=== PATIENT | female | born 1940 | race Caucasian/White ===

== ENCOUNTER 2019-08-27 15:03 | Observation (INO) | payer MEDICARE, OTHER ==
[2019-08-27] MEDS ORDERED: Sodium Chloride 0.9% 10 ML Syringe FLUSH PRN (15:12)
[2019-08-27] MEDS ORDERED: Nitroglycerin 0.4 MG Tab.SL SL PRN (15:31)
[2019-08-27] MEDS ORDERED: Lidocaine 2% 100 MG/5 ML Syringe IVPUSH PRN (15:31)
[2019-08-27] MEDS ORDERED: EPINEPHrine 1:10,000 1 MG/10 ML Syringe IVPUSH PRN (15:31)
[2019-08-27] MEDS ORDERED: Atropine 0.1 MG/ML 10 ML Syringe IVPUSH PRN (15:31)
[2019-08-27] MEDS ORDERED: Albuterol 8 GM Inhaler INH PRN (19:23)
[2019-08-27] MEDS ORDERED: Non-Formulary Medication 1 Each (Exenatide Microspheres [Bydureon Pen] 2 MG) SUBCUT SCH (19:30)
[2019-08-27] MEDS: Nicotine 21 MG/24 Hr Patch TRDERM SCH (19:41)
[2019-08-27] MEDS: Acetaminophen 325 MG Tab PO PRN (20:38)
[2019-08-27] MEDS ORDERED: Cyclobenzaprine 5 MG Tab PO SCH (21:00)
[2019-08-27] MEDS ORDERED: Diclofenac Sodium 75 MG Tab.EC PO SCH (21:00)
[2019-08-27] MEDS ORDERED: Albuterol/Ipratropium 4 GM Inhalation Spray INH SCH (21:00)
[2019-08-27] MEDS: DICLOFENAC SODIUM 75 MG PO SCH (21:22)
[2019-08-28] MEDS: Albuterol/Ipratropium 4 GM Inhalation Spray INH SCH ×2 (00:02→09:35)
[2019-08-28] MEDS: Acetaminophen 325 MG Tab PO PRN ×2 (01:45→07:27)
[2019-08-28] MEDS ORDERED: amLODIPine 5 MG Tab PO SCH (09:00)
[2019-08-28] MEDS ORDERED: Lisinopril 20 MG Tab PO SCH (09:00)
[2019-08-28] MEDS: DICLOFENAC SODIUM 75 MG PO SCH (09:37)
[2019-08-28] MEDS: Nicotine 21 MG/24 Hr Patch TRDERM SCH (09:43)
--- NOTE | 2019-08-28 11:53 | PCM.DCSUM1 ---
Discharge Summary - Hospital Course Diagnosis: Stroke: No - Discharge Data Discharge Date: 08/28/19 Discharge Disposition: Home, Self-Care 01 Condition: Good - Referral to Home Health Primary Care Physician: Clare Aguilera PA-C - Patient Instructions Diet: Usual Diet as Tolerated Activity: As Tolerated Driving: May Drive Today Showering/Bathing: May Shower Notify Provider of: Fever, Nausea and/or Vomiting - Discharge Plan *PRESCRIPTION DRUG MONITORING PROGRAM REVIEWED*: Not Applicable *COPY OF PRESCRIPTION DRUG MONITORING REPORT IN PATIENT KIKA: Not Applicable Home Medications: Home Meds Albuterol [Take Home: Albuterol 18 GM, 1 INH Pack] 1 - 2 puff INH Q4HR PRN 08/27 [History] Albuterol/Ipratropium [Combivent Respimat] 1 puff INH QID 08/27/19 [History] Cyclobenzaprine [Flexeril] 5 mg PO BEDTIME 08/27/19 [History] Diclofenac Sodium [Voltaren] 75 mg PO BID PRN 08/27/19 [History] Exenatide Microspheres [Bydureon Pen] 2 mg SUBCUT WEEKLY 08/27/19 [History] Niacin [Niacin ER] 1,000 mg PO BEDTIME 08/27/19 [History] Nicotine [Nicotine Patch] 14 mg TD DAILY 08/27/19 [History] Pioglitazone HCl 15 mg PO DAILY 08/27/19 [History] lisinopriL [Lisinopril] 40 mg PO DAILY 08/27/19 [History] amLODIPine [Norvasc] 10 mg PO DAILY #1 08/28/19 [Rx] Referrals: Clare Aguilera PA-C [Primary Care Provider] - (anytime next week. ) - Discharge Summary/Plan Comment DC Time >30 min.: Yes Discharge Summary/Plan Comment: pertinent Final Dx: Htn; not optimized, increased CCB upon discharge Suspect coronary ischemia, (EKG with v-5 t-wave inversion) COPD, heavy smoker, no desire to quit GIOVANNI, significantly cog condition, poor sleep habits, no CPAP use, Obesity; confounding, suspect OHS history summary Mrs. Ivey is a 78 year old female who was admitted by Clare Aguilera PA-C from [facility] due tachycardia/EKG changes. She had came in for routine preoperative physical examination for right hip surgery. She stated to me this mo come in for any other reasons if not for this appointmt. She was found ~110 EKG changes and her blood pressure was 160/86 low-grade temperature 100.4. Her O2 saturations were 95% on room air and she had no chest pain or palpita Patient with significant smoker/COPD. pertinent clinical findings --EKG, (EKG with v-5 t-wave inversion) --Initial troponin negative --BNP 107 --BUN/creatinine normal --chest x-ray, no acute hospital course patient quite irritable on rounds, desires strongly to be discharged, agitated, With no sleep, hx of GIOVANNI, high risk for clinical deteriation coupled with and current [facility] not allowing HOME CBD oil which patient dependent on. she denied any chest pain, troponins were normal, viewed overnight telemetry did have some sinu however asymptomatic. She refused nicotine replacement therapy. medication changes/adjustments upon disharge Increase amlodipi to 10 mg daily Disposition --patient desires to discharge, Clare Aguilera --She is to report any chest paning shortness or lightheadedness considerations at follow-up High risk for upcoming surgery (RCRI)--suggest cardiology clearance. Suspect CAD - General Info Functional Status: Reports: Pain Controlled, Tolerating Diet, Ambulating, Urinating, Other (patient quite irritable on rounds, desires strongly to be discharged, agitated, ). Denies: New Symptoms - Review of Systems General: Reports: Fatigue HEENT: Reports: No Symptoms Pulmonary: Reports: Shortness of Breath (on ambulation). Denies: Cough, Sputum Cardiovascular: Reports: Dyspnea on Exertion, Lightheadedness. Denies: Chest Pain, Orthopnea, PND, Edema Gastrointestinal: Reports: Constipation. Denies: Abdominal Pain Genitourinary: Reports: No Symptoms Musculoskeletal: Reports: Joint Pain (right hip pain. ) Neurological: Reports: Difficulty Walking, Gait Disturbance. Denies: Confusion , Dizziness, Headache, Paresthesia - Patient Data Vitals - Most Recent: Last Vital Signs Temp 96.8 F 08/28/19 11:00 Pulse 77 08/28/19 11:00 Resp 20 08/28/19 11:00 BP 172/85 H 08/28/19 11:00 Pulse Ox 93 L 08/28/19 11:00 Weight - Most Recent: 143 lb I&O - Last 24 hours: Intake & Output 08/27/19 08/28/19 08/28/19 22:59 06:59 14:59 Intake Total 200 100 Output Total 400 100 Balance -200 0 Lab Results - Last 24 hrs: Laboratory Results - last 24 hr 08/27/19 08/27/19 08/27/19 Range/Units 17:42 19:30 19:38 POC Glucose 179 H (74-106) mg/dl Troponin I 0.04 (0.00-0.070) ng/mL Specimen Type Urinblad Urine Color Light yellow (YELLOW) Urine Appearance Clear (CLEAR) Urine pH 7.0 (5.0-9.0) Ur Specific [place] 1.015 (1.005-1.030) Urine Protein Trace H (NEGATIVE) mg/dL Urine Glucose (UA) 250 H (NEGATIVE) mg/dL Urine Ketones Negative (NEGATIVE) mg/dL Urine Occult Blood Negative (NEGATIVE) Urine Nitrite Negative (NEGATIVE) Urine Bilirubin Negative (NEGATIVE) Urine Urobilinogen 0.2 (0.2-1.0) E.U./dL Ur Leukocyte Esterase Negative (NEGATIVE) Urine RBC Not seen (0-5) /HPF Urine WBC 0-5 (0-5) /HPF Ur Epithelial Cells Few /LPF Urine Bacteria Rare (NONE TO FEW) /HPF 08/28/19 08/28/19 Range/Units 07:11 07:22 POC Glucose 175 H (74-106) mg/dl Troponin I 0.04 (0.00-0.070) ng/mL Specimen Type Urine Color (YELLOW) Urine Appearance (CLEAR) Urine pH (5.0-9.0) Ur Specific [place] (1.005-1.030) Urine Protein (NEGATIVE) mg/dL Urine Glucose (UA) (NEGATIVE) mg/dL Urine Ketones (NEGATIVE) mg/dL Urine Occult Blood (NEGATIVE) Urine Nitrite (NEGATIVE) Urine Bilirubin (NEGATIVE) Urine Urobilinogen (0.2-1.0) E.U./dL Ur Leukocyte Esterase (NEGATIVE) Urine RBC (0-5) /HPF Urine WBC (0-5) /HPF Ur Epithelial Cells /LPF Urine Bacteria (NONE TO FEW) /HPF Med Orders - Current: Current Medications Acetaminophen (Tylenol) 650 mg PO Q6H PRN PRN Reason: Pain (Mild 1-3)/fever Last Admin: 08/28/19 07:27 Dose: 650 mg Albuterol (Ventolin Hfa) 0 gm INH Q4HR PRN PRN Reason: Wheezing Albuterol/Ipratropium (Combivent Respimat) 0 gm INH 1000,1400,1800,2200 [facility] Last Admin: 08/28/19 09:35 Dose: 1 puff Amlodipine Besylate (Norvasc) 5 mg PO DAILY [facility] Last Admin: 08/28/19 09:35 Dose: 5 mg Atropine Sulfate (Atropine 0.1 Mg/Ml) 0 mg IVPUSH ASDIRECTED PRN PRN Reason: Heart. Cyclobenzaprine HCl (Flexeril) 5 mg PO BEDTIME [facility] Last Admin: 08/27/19 22:31 Dose: 5 mg Diclofenac Sodium (Voltaren) 75 mg PO BID [facility] Last Admin: 08/28/19 09:37 Dose: 75 mg Epinephrine HCl (Epinephrine 1:10,000) 1 mg IVPUSH ASDIRECTED PRN PRN Reason: Heart. Lidocaine HCl (Xylocaine 2%) 0 mg IVPUSH ASDIRECTED PRN PRN Reason: Heart. Lisinopril (Prinivil) 40 mg PO DAILY [facility] Last Admin: 08/28/19 09:36 Dose: 40 mg Nicotine (Habitrol) 21 mg TRDERM DAILY [facility] Last Admin: 08/28/19 09:43 Dose: Not Given Nitroglycerin (Nitrostat) 0.4 mg SL ASDIRECTED PRN PRN Reason: Heart. Non-Formulary Medication (Exenatide Microspheres [Bydureon Pen]) 2 mg SUBCUT WEEKLY [facility] Pioglitazone HCl (Actos) 15 mg PO DAILY [facility] Last Admin: 08/28/19 09:35 Dose: 15 mg Sodium Chloride (Saline Flush) 10 ml FLUSH Q8HR PRN PRN Reason: keep vein open Last Admin: 08/27/19 21:21 Dose: 10 ml Discontinued Medications Albuterol/Ipratropium (Combivent Respimat) 0 gm INH QID [facility] Last Admin: 08/27/19 22:54 Dose: Not Given Diclofenac Sodium (Voltaren) 75 mg PO BID [facility] Last Admin: 08/27/19 22:53 Dose: Not Given - Exam Quality Assessment: Denies: Supplemental Oxygen General: Reports: Alert, Oriented, Cooperative (patient quite irritable on rounds, desires strongly to be discharged, agitated, ) Neck: Reports: Supple Lungs: Reports: Rhonchi Cardiovascular: Reports: Regular Rate, Regular Rhythm GI/Abdominal Exam: Soft (Female) Exam: Normal External Exam Back Exam: Denies: CVA Tenderness (L), CVA Tenderness (R) Extremities: Non-Tender Neurological: Reports: Cranial Nerves Intact. Denies: Normal Gait Psy/Mental Status: Reports: Alert, Anxious, Agitated
== END 2019-08-28 12:07 | disposition home or self-care (01) ==
LOC: KA.MS 17:02
PROVIDERS: ADMIT Physician Assistant Medical; ATTEND Family Medicine
DX: I10 Essential (primary) hypertension (principal); E11.42 Type 2 diabetes mellitus with diabetic polyneuropathy; J44.9 Chronic obstructive pulmonary disease, unspecified; F17.210 Nicotine dependence, cigarettes, uncomplicated; G47.33 Obstructive sleep apnea (adult) (pediatric); R35.0 Frequency of micturition; E66.9 Obesity, unspecified; Z88.0 Allergy status to penicillin; Z91.041 Radiographic dye allergy status; Z91.030 Bee allergy status; Z79.84 Long term (current) use of oral hypoglycemic drugs; Z79.1 Long term (current) use of non-steroidal anti-inflammatories (NSAID); Z79.899 Other long term (current) drug therapy; Z68.34 Body mass index [BMI] 34.0-34.9, adult
CPT/HCPCS: 36415; 71250; 81001; 82962; 84484; A9270-GY; G0378

== ENCOUNTER 2021-04-11 10:59 | Inpatient (IN) | payer MEDICARE, OTHER ==
[2021-04-11] MEDS ORDERED: traMADol 50 MG Tab PO ONE (15:20)
[2021-04-11] MEDS ORDERED: Albuterol/Ipratropium 3.0-0.5 MG/3 ML Neb Soln INH PRN (17:39)
[2021-04-11] MEDS: glipiZIDE 5 MG Tab.ER PO SCH (18:08)
[2021-04-11] MEDS: amLODIPine 5 MG Tab PO SCH (18:09)
[2021-04-11] MEDS: Acetaminophen/HYDROcodone 325-5 MG Tab PO PRN (18:17)
[2021-04-11] MEDS: traMADol 50 MG Tab PO PRN (22:04)
[2021-04-12] MEDS: ALBUTEROL INH PRN ×2 (06:13→14:05)
[2021-04-12] MEDS: IPRATROPIUM INH PRN ×2 (06:13→14:05)
[2021-04-12] MEDS: traMADol 50 MG Tab PO PRN ×3 (06:14→14:08)
[2021-04-12] MEDS: Acetaminophen/HYDROcodone 325-5 MG Tab PO PRN ×2 (09:01→20:17)
[2021-04-12] MEDS: Aspirin 325 MG Tab.EC PO SCH (09:02)
[2021-04-12] MEDS ORDERED: Magnesium Hydroxide 400 MG/5 ML Susp 30 ML Cup PO PRN (09:14)
[2021-04-12] MEDS ORDERED: Bisacodyl 10 MG Supp RECTAL PRN (09:14)
[2021-04-12] MEDS: Lisinopril 20 MG Tab PO SCH (09:30)
[2021-04-12 10:20] LABS: ANION GAP 14.4 mmol/L (5-15); CHLORIDE,CL 100 mmol/L (98-107); SODIUM,NA 139 mmol/L (136-145)
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
[2021-04-12] MEDS: EPINEPHRINE INH SCH ×2 (12:03→20:16)
[2021-04-12] MEDS ORDERED: Nicotine 21 MG/24 Hr Patch TRDERM PRN (16:31)
[2021-04-12 16:54] LABS: HEMOGLOBIN A1C 6.7 % (4.3-5.7)
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
[2021-04-12] MEDS: glipiZIDE 5 MG Tab.ER PO SCH (18:03)
[2021-04-12] MEDS: amLODIPine 5 MG Tab PO SCH (18:03)
[2021-04-13] MEDS: traMADol 50 MG Tab PO PRN ×4 (02:34→20:16)
[2021-04-13] MEDS: COMBIVENT RESPIMAT INH PRN ×2 (02:35→10:30)
[2021-04-13] MEDS: Aspirin 325 MG Tab.EC PO SCH (08:35)
[2021-04-13] MEDS: Acetaminophen/HYDROcodone 325-5 MG Tab PO PRN (08:35)
[2021-04-13] MEDS: Lisinopril 20 MG Tab PO SCH (08:36)
[2021-04-13] MEDS: EPINEPHRINE INH SCH ×2 (08:36→20:12)
[2021-04-13] MEDS ORDERED: traMADol 50 MG Tab PO PRN (08:42)
[2021-04-13] MEDS ORDERED: Acetaminophen/HYDROcodone 325-5 MG Tab PO ONE (10:22)
[2021-04-13] MEDS: Naloxegol Oxalate 25 MG Tab PO SCH (10:31)
[2021-04-13] MEDS: amLODIPine 5 MG Tab PO SCH (18:04)
[2021-04-13] MEDS: glipiZIDE 5 MG Tab.ER PO SCH (18:05)
[2021-04-14] MEDS: COMBIVENT RESPIMAT INH PRN ×3 (02:14→21:00)
[2021-04-14] MEDS: traMADol 50 MG Tab PO PRN ×2 (02:16→10:41)
[2021-04-14] MEDS: Acetaminophen/HYDROcodone 325-5 MG Tab PO PRN ×2 (07:33→20:59)
[2021-04-14] MEDS: Aspirin 325 MG Tab.EC PO SCH (08:37)
[2021-04-14] MEDS: Lisinopril 20 MG Tab PO SCH (08:37)
[2021-04-14] MEDS: Naloxegol Oxalate 25 MG Tab PO SCH (08:37)
[2021-04-14] MEDS: EPINEPHRINE INH SCH ×2 (08:41→20:00)
[2021-04-14] MEDS: glipiZIDE 5 MG Tab.ER PO SCH (16:39)
[2021-04-14] MEDS: amLODIPine 5 MG Tab PO SCH (16:39)
[2021-04-15] MEDS: traMADol 50 MG Tab PO PRN ×4 (01:28→21:06)
[2021-04-15] MEDS: Acetaminophen/HYDROcodone 325-5 MG Tab PO PRN ×4 (07:51→23:41)
[2021-04-15] MEDS: EPINEPHRINE INH SCH ×3 (08:00→20:21)
[2021-04-15] MEDS: Lisinopril 20 MG Tab PO SCH (10:35)
[2021-04-15] MEDS: Aspirin 325 MG Tab.EC PO SCH (10:35)
[2021-04-15] MEDS: Naloxegol Oxalate 25 MG Tab PO SCH (10:35)
[2021-04-15] MEDS ORDERED: EXENATIDE SUBCUT SCH (14:00)
[2021-04-15] MEDS: amLODIPine 5 MG Tab PO SCH (17:28)
[2021-04-15] MEDS: glipiZIDE 5 MG Tab.ER PO SCH (17:28)
[2021-04-15] MEDS: COMBIVENT RESPIMAT INH PRN (23:40)
[2021-04-16] MEDS: COMBIVENT RESPIMAT INH PRN ×3 (05:15→23:23)
[2021-04-16] MEDS: Acetaminophen/HYDROcodone 325-5 MG Tab PO PRN ×4 (07:30→21:31)
[2021-04-16] MEDS: Naloxegol Oxalate 25 MG Tab PO SCH (08:32)
[2021-04-16] MEDS: Aspirin 325 MG Tab.EC PO SCH (08:32)
[2021-04-16] MEDS: Lisinopril 20 MG Tab PO SCH (08:40)
[2021-04-16] MEDS: EPINEPHRINE INH SCH ×2 (08:41→20:00)
[2021-04-16] MEDS: amLODIPine 5 MG Tab PO SCH (17:24)
[2021-04-16] MEDS: glipiZIDE 5 MG Tab.ER PO SCH (17:24)
[2021-04-16] MEDS: traMADol 50 MG Tab PO PRN (23:23)
[2021-04-16] MEDS: Simethicone 80 MG Tab.Chew PO PRN (23:55)
[2021-04-17] MEDS: Aspirin 325 MG Tab.EC PO SCH (07:59)
[2021-04-17] MEDS: Lisinopril 20 MG Tab PO SCH (07:59)
[2021-04-17] MEDS: Naloxegol Oxalate 25 MG Tab PO SCH (07:59)
[2021-04-17] MEDS: Acetaminophen/HYDROcodone 325-5 MG Tab PO PRN ×3 (07:59→20:23)
[2021-04-17] MEDS: EPINEPHRINE INH SCH ×2 (08:06→20:23)
[2021-04-17] MEDS: COMBIVENT RESPIMAT INH PRN ×2 (08:06→22:43)
[2021-04-17] MEDS: traMADol 50 MG Tab PO PRN (10:42)
[2021-04-17] MEDS: Simethicone 80 MG Tab.Chew PO PRN (16:41)
[2021-04-17] MEDS: amLODIPine 5 MG Tab PO SCH (17:43)
[2021-04-17] MEDS: glipiZIDE 5 MG Tab.ER PO SCH (17:43)
[2021-04-18] MEDS: traMADol 50 MG Tab PO PRN ×2 (04:21→10:21)
[2021-04-18] MEDS: COMBIVENT RESPIMAT INH PRN (04:43)
[2021-04-18] MEDS: Naloxegol Oxalate 25 MG Tab PO SCH (08:43)
[2021-04-18] MEDS: Acetaminophen/HYDROcodone 325-5 MG Tab PO PRN (08:43)
[2021-04-18] MEDS: Aspirin 325 MG Tab.EC PO SCH (08:43)
[2021-04-18] MEDS: Lisinopril 20 MG Tab PO SCH (08:44)
[2021-04-18] MEDS: EPINEPHRINE INH SCH (08:50)
--- NOTE | 2021-04-18 08:56 | PCM.DCSUM1 ---
Discharge Summary - Hospital Course Free Text/Narrative:: Date of admission: 04/11/21 Date of discharge: 04/18/21 Admission diagnoses: # Physical deconditioning # S/p right VITALIY - PT and OT - Continue dressing changes daily with dry gauze and tape - ASA 325mg daily for 6 weeks per orthopedics - Philip 5/325 q4h prn and tramadol 50mg q6h prn - Follow-up appt with Dr. Escalona 04/24 at 1300 at [facility] # Constipation: Postoperative and in the setting of narcotic use. Active bowel sounds and no significant abdominal pain. She declines any medication assistance other than the stool softener at this time. - Docusate/Senna 1 tab BID - MgOH daily prn - Bisacodyl suppository prn # Anemia: Postoperative. Admission hgb 10.5. - Plan for outpatient recheck, unless need to recheck sooner arises Discharge diagnoses: # GIOVANNI: Declines CPAP. # COPD: Stable respiratory status. Continue Combivent and albuterol prn. # CAD: 11/21/20 catheterization with moderate disease of circumflex. Adamantly declines aspirin, beta robin, or statin. # Atrial fibrillation, persistent: 12/12/20 event monitor with 100% burden. Adamantly declines anticoagulation, aspirin, or beta robin. # HTN: Controlled. Continue lisinopril 40mg daily and amlodipine 10mg daily. # Heart failure with preserved ejection fraction / Pulmonary HTN: 09/03/19 echo with grade 3 diastolic dysfunction, [id number] dilated left atrium, and PASP 62mmHg. Fluid status stable. # DMT2: Admission A1c 6.7%. Intolerant of metformin. Continue exenatide 2mg weekly and glipizide 10mg daily. # HLD: 11/18/20 lipid panel with LDL 104. Adamantly declines statin. # OA: Was using diclofenac, acetaminophen, and topical CBD as outpatient. Recommend not restarting NSAID at discharge in the setting of CAD. # Tobacco dependence: Previously was smoking 2ppd. Precontemplative stage of change. Nicotine patch available prn, which she declines currently. HPI summary: 80yoF with a history notable for CAD, COPD, and DMT2, who underwent right VITALIY on 04/07/21 at [facility] for severe degenerative disease and avascular necrosis. After generally uncomplicated postoperative course, she was deemed ready for acute hospitalization discharge and agreed to swing bed placement at [facility] for physical rehabilitation. 04/18/21: Patient looking forward to discharging home, she is concerned about going up her stairs to get into her house. [facility] and in home physical therapy planned upon discharge. Patient denies pain "as long as I get my pain pill before I get up." Bowels moving regularly, no concern of post- operative constipation. Reports mild occasional nausea, no vomiting. Swelling to RLE, patient refusing YUDI, teds stating this makes it worse. Sitting in wheelchair much of the day. Encouraged her to elevate her leg as much as possible at home. Patient states she plans to stop taking her glipizide as she attributes the increased swelling to her medication. Patient to follow-up in the next week with Scarlett Huffman APRN, CNP at [facility]. Discharge and follow-up recommendations: - Discharge to home with [facility] with PT and home health aide - New medications at discharge: Aspirin 325mg PO daily x 6 weeks for post- operative anticoagulation; Philip 5/325 Q4H PRN pain, tramadol 50mg Q6H PRN pain; continue bowel regimen of senna + PO BID, MOM daily PRN, and bisacodyl suppository PRN. - Follow-up with PCP Scarlett Huffman APRN-YUE, in the next week. Recheck Hgb as outpatient, Hgb upon swing bed admission 10.5. This is the order & Face to Face encounter for home health services to include: 1. Nursing, PT, OT and home health aide 2. Patient has half-way need and has home bound status due to: - Develop an in-home therapy program to address decreased strength/endurance due to s/p hip surgery - Unsteady gait due to recent joint replacement surgery - Wound care and assessment of risk for infection due to s/p hip replacement * Patient is home bound as related to the above condition. 3. The patient will be followed by Scarlett Huffman APRN, CNP in the community setting and will sign home health orders. - Discharge Data Discharge Date: 04/18/21 Discharge Disposition: Home, W Home Health Agency 06 Condition: Good - Referral to Home Health Date of Face to Face Encounter: 04/18/21 ([facility]) Reason for Homebound Status: This is the order & Face to Face encounter for home health services to include: 1. Nursing, PT, OT and home health aide. 2. Patient has half-way need and has home bound status due to: - Develop an in-home therapy program to address decreased strength/endurance due to s/p hip surgery. - Unsteady gait due to recent joint replacement surgery. - Wound care and assessment of risk for infection due to s/p hip replacement. * Patient is home bound as related to the above condition. 3. The patient will be followed by Scarlett Huffman APRN, CNP in the community setting and will sign home health orders. Skilled Need: This is the order & Face to Face encounter for home health services to include: 1. Nursing, PT, OT and home health aide. 2. Patient has half-way need and has home bound status due to: - Develop an in-home therapy program to address decreased strength/endurance due to s/p hip surgery. - Unsteady gait due to recent joint replacement surgery. - Wound care and assessment of risk for infection due to s/p hip replacement. * Patient is home bound as related to the above condition. 3. The patient will be followed by Scarlett Huffman APRN, CNP in the community setting and will sign home health orders. - Patient Summary/Data Consults: Consultations 04/11/21 16:18 OT Evaluation and Treatment [CONS] Routine PT Evaluation and Treatment [CONS] Routine - Patient Instructions Diet: Usual Diet as Tolerated Driving: Do Not Drive Showering/Bathing: No Tub Bathing/Swimming Wound/Incision Care: Keep Operative Site/Wound Site Clean and Dry, Change Dressing Daily Notify Provider of: Fever, Increased Pain, Swelling and Redness, Drainage, Nausea and/or Vomiting - Discharge Plan *PRESCRIPTION DRUG MONITORING PROGRAM REVIEWED*: Yes *COPY OF PRESCRIPTION DRUG MONITORING REPORT IN PATIENT KIKA: Yes Prescriptions/Med Rec: Hydrocodone/Acetaminophen [HYDROcodone-Acetaminophen 5-325 MG] 1 - 2 tab PO Q4H PRN #60 tab PRN Reason: Pain traMADol [Ultram] 50 - 100 mg PO Q4HR PRN #60 tab PRN Reason: Pain Tobacco Cessation Medication: Prescription Refused Home Medications: Home Meds Albuterol/Ipratropium [Combivent Respimat] 1 puff INH QID PRN 02/06/20 [History] Exenatide Microspheres [Bydureon Pen] 2 mg SUBCUT WEEKLY 08/27/19 [History] lisinopriL [Lisinopril] 40 mg PO DAILY 08/27/19 [History] Aspirin [Aspirin EC] 325 mg PO DAILY 04/11/21 [History] Cannabidiol (Cbd) Extract [CBD Oil] 1 tab PO Q6H PRN 04/11/21 [History] Cider Vinegar [Apple Cider Vinegar] 300 mg PO BID 04/11/21 [History] EPINEPHrine [Primatene Mist] 2 puff PO BID PRN 04/11/21 [History] Niacinamide [Niacin] 500 mg PO BEDTIME 04/11/21 [History] Vitamin E 400 units PO DAILY 04/11/21 [History] amLODIPine [Norvasc] 10 mg PO DAILY@1700 04/11/21 [History] glipiZIDE [Glucotrol XL] 10 mg PO DAILY@1730 04/11/21 [History] guaiFENesin/Phenylephrine HCl [Chest Franco Rlf PE 400-10 mg Tb] 1 tab PO Q6H PRN 04/11/21 [History] Docusate Sodium/Sennosides [Senna Plus] 1 tab PO BID tablet 04/18/21 [Rx] Hydrocodone/Acetaminophen [HYDROcodone-Acetaminophen 5-325 MG] 1 - 2 tab PO Q4H PRN #60 tab 04/18/21 [Rx] Magnesium Hydroxide [Milk of Magnesia] 30 ml PO Q12H PRN cup 04/18/21 [Rx] Non-Formulary Medication [NF Drug] 2 each INH BID each 04/18/21 [Rx] Patient's Own Medication [Ptom] 0 each INH QID PRN each 04/18/21 [Rx] bisacodyL [Dulcolax] 10 mg RECTAL DAILY PRN supp 04/18/21 [Rx] traMADol [Ultram] 50 - 100 mg PO Q4HR PRN #60 tab 04/18/21 [Rx] Oxygen Therapy Mode: Room Air - Discharge Summary/Plan Comment DC Time >30 min.: Yes Total # of Minutes for Discharge Time: 45 - General Info Functional Status: Reports: Pain Controlled, Tolerating Diet, Ambulating (with assistance of walker, sitting in wheelchair much of the day), Urinating. Denies: New Symptoms - Review of Systems General: Reports: No Symptoms HEENT: Reports: No Symptoms Pulmonary: Reports: No Symptoms Cardiovascular: Reports: Edema (left lower leg and foot) Gastrointestinal: Reports: Nausea (intermittent). Denies: Vomiting Genitourinary: Reports: No Symptoms Musculoskeletal: Reports: Joint Pain (R hip after surgery) Skin: Reports: Other (left hip incision, healing) Neurological: Reports: No Symptoms Psychiatric: Reports: No Symptoms - Patient Data Vitals - Most Recent: Last Vital Signs Temp 97.8 F 04/17/21 09:00 Pulse 90 04/17/21 09:00 Resp 20 04/17/21 09:00 BP 128/57 L 04/18/21 08:44 Pulse Ox 97 04/17/21 09:00 Weight - Most Recent: 132 lb 8 oz I&O - Last 24 hours: Intake & Output 04/17/21 04/18/21 04/18/21 22:59 06:59 14:59 Intake Total 100 50 Balance 100 50 Med Orders - Current: Current Medications Hydrocodone Bitart/Acetaminophen (Acetaminophen/Hydrocodone 325-5 Mg Tab) 1 tab PO Q4H PRN PRN Reason: Pain Last Admin: 04/18/21 08:43 Dose: 1 tab Documented by: Amlodipine Besylate (Amlodipine 5 Mg Tab) 10 mg PO DAILY@1700 [facility] Last Admin: 04/17/21 17:43 Dose: 10 mg Documented by: Aspirin (Aspirin 325 Mg Tab.Ec) 325 mg PO DAILY [facility] Last Admin: 04/18/21 08:43 Dose: 325 mg Documented by: Bisacodyl (Bisacodyl 10 Mg Supp) 10 mg RECTAL DAILY PRN PRN Reason: Constipation Glipizide (Glipizide 5 Mg Tab.Er) 10 mg PO DAILY@1730 [facility] Last Admin: 04/17/21 17:43 Dose: 10 mg Documented by: Lisinopril (Lisinopril 20 Mg Tab) 40 mg PO DAILY [facility] Last Admin: 04/18/21 08:44 Dose: 40 mg Documented by: Magnesium Hydroxide (Magnesium Hydroxide 400 Mg/5 Ml Susp 30 Ml Cup) 30 ml PO Q12H PRN PRN Reason: Constipation Naloxegol (Naloxegol Oxalate 25 Mg Tab) 25 mg PO DAILY [facility] Last Admin: 04/18/21 08:43 Dose: 25 mg Documented by: Nicotine (Nicotine 21 Mg/24 Hr Patch) 21 mg TRDERM DAILY PRN PRN Reason: NICOTINE CRAVING Last Admin: 04/14/21 12:19 Dose: 21 mg Documented by: Exenatide Microspheres [ Bydureon Pen] 2 Mg/0 .65 Ml Ml - Ptom 2 mg SUBCUT Sa [facility] Last Admin: 04/15/21 14:15 Dose: 2 mg Documented by: Primatene Mist 0. 125mg/Inh ( Epinephrine)Own Med 2 each INH BID [facility] Last Admin: 04/18/21 08:50 Dose: 2 each Documented by: Combivent Respimat 0 each INH QID PRN PRN Reason: Shortness of Breath Last Admin: 04/18/21 04:43 Dose: 1 each Documented by: Senna/Docusate Sodium (Docusate Sodium/Sennosides 50-8.6 Mg Tab) 1 tab PO BID [facility] Last Admin: 04/18/21 08:43 Dose: 1 tab Documented by: Simethicone (Simethicone 80 Mg Tab.Chew) 80 mg PO Q6H PRN PRN Reason: Indigestion Last Admin: 04/17/21 16:41 Dose: 80 mg Documented by: Tramadol HCl (Tramadol 50 Mg Tab) 100 mg PO Q6HR PRN PRN Reason: Pain Last Admin: 04/18/21 04:21 Dose: 100 mg Documented by: Discontinued Medications Hydrocodone Bitart/Acetaminophen (Acetaminophen/Hydrocodone 325-5 Mg Tab) 1 - 2 tab PO Q4H PRN PRN Reason: Pain Last Admin: 04/13/21 08:35 Dose: 1 tab Documented by: Hydrocodone Bitart/Acetaminophen (Acetaminophen/Hydrocodone 325-5 Mg Tab) 1 tab PO ONETIME ONE Stop: 04/13/21 10:23 Last Admin: 04/13/21 10:30 Dose: 1 tab Documented by: Albuterol/Ipratropium (Albuterol/Ipratropium 3.0-0.5 Mg/3 Ml Neb Soln) 3 ml INH QID PRN PRN Reason: Shortness of Breath Combivent Respimat 20 Mcg-100mcg/Act Inhaler Own Med 0 each INH QID PRN PRN Reason: Shortness of Breath Last Admin: 04/12/21 14:05 Dose: 1 each Documented by: Senna/Docusate Sodium (Docusate Sodium/Sennosides 50-8.6 Mg Tab) 1 tab PO Q12H PRN PRN Reason: Constipation Last Admin: 04/12/21 13:10 Dose: 1 tab Documented by: Tramadol HCl (Tramadol 50 Mg Tab) 100 mg PO ONETIME ONE Stop: 04/11/21 15:21 Last Admin: 04/11/21 15:33 Dose: 100 mg Documented by: Tramadol HCl (Tramadol 50 Mg Tab) 50 - 100 mg PO Q4HR PRN PRN Reason: Pain Last Admin: 04/13/21 06:43 Dose: 50 mg Documented by: Tramadol HCl (Tramadol 50 Mg Tab) 100 mg PO Q6HR PRN PRN Reason: Pain - Exam Quality Assessment: Reports: DVT Prophylaxis (aspirin 325mg PO daily x 6 weeks per pharmacy). Denies: Supplemental Oxygen General: Reports: Alert, Oriented, Cooperative, No Acute Distress HEENT: Reports: Pupils Equal, Mucous Membr. Moist/[place] Neck: Reports: Supple, Trachea Midline Lungs: Reports: Clear to Auscultation, Decreased Breath Sounds. Denies: Crackles, Rhonchi, Wheezing Cardiovascular: Reports: Regular Rate, Regular Rhythm, No Murmurs GI/Abdominal Exam: Normal Bowel Sounds, Soft, Non-Tender, No Distention (Female) Exam: Deferred Rectal (Female) Exam: Deferred Back Exam: Reports: Full Range of Motion Extremities: Non-Tender, Normal Capillary Refill, Pedal Edema (2+ to R foot and lower leg) Skin: Reports: Warm, Dry, Intact Wound/Incisions: Reports: Healing Well, Dressing Dry and Intact, Drainage (scant serous) Neurological: Reports: No New Focal Deficit Psy/Mental Status: Reports: Alert, Normal Affect, Normal Mood
== END 2021-04-18 10:40 | disposition home health service (06) | DRG 948 ==
LOC: KA.MS 14:40
PROVIDERS: ADMIT Nurse Practitioner Family; ATTEND Family Medicine
DX: R53.81 Other malaise (principal); I48.19 Other persistent atrial fibrillation; I50.32 Chronic diastolic (congestive) heart failure; Z96.641 Presence of right artificial hip joint; K59.00 Constipation, unspecified; D64.9 Anemia, unspecified; G47.33 Obstructive sleep apnea (adult) (pediatric); J44.9 Chronic obstructive pulmonary disease, unspecified; I25.10 Atherosclerotic heart disease of native coronary artery without angina pectoris; I11.0 Hypertensive heart disease with heart failure; I27.20 Pulmonary hypertension, unspecified; E11.9 Type 2 diabetes mellitus without complications; E78.5 Hyperlipidemia, unspecified; M19.90 Unspecified osteoarthritis, unspecified site; D50.9 Iron deficiency anemia, unspecified; F17.210 Nicotine dependence, cigarettes, uncomplicated; Z79.82 Long term (current) use of aspirin; Z79.899 Other long term (current) drug therapy; Z79.84 Long term (current) use of oral hypoglycemic drugs; Z88.8 Allergy status to other drugs, medicaments and biological substances; Z91.030 Bee allergy status; Z88.0 Allergy status to penicillin; Z88.1 Allergy status to other antibiotic agents; Z90.710 Acquired absence of both cervix and uterus; Z90.49 Acquired absence of other specified parts of digestive tract
CPT/HCPCS: 36415; 80053; 82947; 83036; 85025; 97110-GO; 97110-GP; 97161-GP; 97535-GO; A9270-GY

== ENCOUNTER 2022-11-16 18:25 | Observation (INO) | payer MEDICARE, OTHER ==
[2022-11-16] MEDS ORDERED: EPINEPHrine 1:10,000 1 MG/10 ML Syringe IVPUSH PRN (18:50)
[2022-11-16] MEDS ORDERED: Lidocaine 2% 100 MG/5 ML Syringe IVPUSH PRN (18:50)
[2022-11-16] MEDS ORDERED: Nitroglycerin 0.4 MG Tab.SL SL PRN (18:50)
[2022-11-16] MEDS ORDERED: Atropine 0.1 MG/ML 10 ML Syringe IVPUSH PRN (18:50)
[2022-11-16] MEDS ORDERED: Sodium Chloride 0.9% 10 ML Syringe FLUSH PRN (18:50)
[2022-11-16] MEDS ORDERED: Potassium Chloride 20 MEQ in Premix Bag 1 BAG IV ONE (19:22)
[2022-11-16] MEDS ORDERED: 50% Dextrose in Water 50 ML Syringe IVPUSH PRN (19:23)
[2022-11-16] MEDS ORDERED: Glucagon,Human Recombinant 1 MG Vial IM PRN (19:23)
[2022-11-16] MEDS: Sodium Chloride 0.9% 100 ML IV SCH (19:43)
[2022-11-16] MEDS ORDERED: Non-Formulary Medication 1 Each (Acetaminophen [Tylenol Extra Strength] 500 MG Tablet) PO PRN (20:58)
[2022-11-16] MEDS ORDERED: Albuterol 90 MCG/6.7 GM Inhaler INH PRN (20:58)
[2022-11-16] MEDS ORDERED: Magnesium Sulfate/Water 4 GM in Premix Bag 1 BAG IV ONE (21:00)
[2022-11-17] MEDS ORDERED: Potassium Chloride 20 MEQ in Premix Bag 1 BAG IV ONE ×5 (01:00→14:23)
[2022-11-17] MEDS: Sodium Chloride 0.9% 100 ML IV SCH ×2 (04:18→14:52)
[2022-11-17] MEDS: Insulin Lispro 100 Unit/ML 3 ML KwikPen SUBCUT SCH ×3 (07:57→17:46)
[2022-11-17 08:02] LABS: ANION GAP 12.3 mmol/L (5-15)
[2022-11-17] MEDS: Potassium Chloride 10 MEQ Tab.ER PO SCH ×2 (08:11→10:19)
[2022-11-17] MEDS: Magnesium Oxide 500 MG Tab PO SCH ×3 (08:11→21:02)
[2022-11-17] MEDS ORDERED: LISINOPRIL 40 MG PO SCH (09:00)
[2022-11-17] MEDS ORDERED: ASPIRIN 325 MG PO SCH (09:00)
[2022-11-17] MEDS ORDERED: Non-Formulary Medication 1 Each (Lisinopril [Lisinopril] 40 MG Tablet) PO SCH (09:00)
[2022-11-17] MEDS ORDERED: Sodium Chloride 0.9% 250 ML IV SCH (10:45)
[2022-11-17] MEDS ORDERED: Potassium Chloride 20 MEQ Tab.ER PO ONE ×2 (12:00→20:42)
[2022-11-17] MEDS ORDERED: amLODIPine 5 MG Tab PO SCH (17:00)
[2022-11-17] MEDS ORDERED: glipiZIDE 5 MG Tab.ER PO SCH (17:30)
[2022-11-17 19:59] LABS: ANION GAP 9.7 mmol/L (5-15)
[2022-11-17] MEDS ORDERED: EXENATIDE MICROSPHERES 2 MG/0.65 ML SUBCUT SCH (20:58)
[2022-11-18] MEDS ORDERED: Magnesium Oxide 500 MG Tab PO SCH (09:00)
== END 2022-11-17 21:10 | disposition home or self-care (01) ==
LOC: UNDOADMOB 18:25 → KA.MS 18:25 → UNDODISOB 11-17 21:10
PROVIDERS: ADMIT Nurse Practitioner Family; ATTEND Family Medicine
DX: E87.6 Hypokalemia (principal); E83.42 Hypomagnesemia; I48.92 Unspecified atrial flutter; E11.9 Type 2 diabetes mellitus without complications; E78.2 Mixed hyperlipidemia; I10 Essential (primary) hypertension; I25.10 Atherosclerotic heart disease of native coronary artery without angina pectoris; J45.909 Unspecified asthma, uncomplicated; R94.31 Abnormal electrocardiogram [ECG] [EKG]; Z79.899 Other long term (current) drug therapy; Z79.82 Long term (current) use of aspirin; Z88.0 Allergy status to penicillin; Z88.8 Allergy status to other drugs, medicaments and biological substances; Z98.890 Other specified postprocedural states
CPT/HCPCS: 36415; 80048; 82947; 83735; 85025; 93005; 96365; 96366; 96367; 96376; A9270-GY; G0378; G0379; J1815-GY; J3475; J3480; J3490

== ENCOUNTER 2025-03-06 19:54 | Inpatient (IN) | payer MEDICARE, OTHER ==
[2025-03-06] MEDS ORDERED: Sodium Chloride 0.9% 10 ML Syringe FLUSH PRN (20:03)
[2025-03-06 20:12] LABS: BASOPHILS ABSOLUTE AUTO 0.02 10^3/uL (0.00-0.10); BASOPHILS PERCENT AUTO 0.1 % (0.0-1.0); EOSINOPHILS ABSOLUTE AUTO 0.00 10^3/uL (0.10-0.30); EOSINOPHILS PERCENT AUTO 0.0 % (1.0-3.0); IMMATURE GRAN ABSOLUTE AUTO 0.04 10^3/uL (0.00-0.04); IMMATURE GRAN PERCENT AUTO 0.3 % (0.0-0.4); LYMPHOCYTES ABSOLUTE AUTO 2.04 10^3/uL (1.00-4.00); LYMPHOCYTES PERCENT AUTO 13.4 % (20.0-40.0); MEAN PLATELET VOLUME 11.7 fL (7.4-10.4); MONOCYTES ABSOLUTE AUTO 0.31 10^3/uL (0.10-0.80); MONOCYTES PERCENT AUTO 2.0 % (2.0-8.0); NEUTROPHILS ABSOLUTE AUTO 12.87 10^3/uL (2.50-7.00); NEUTROPHILS PERCENT AUTO 84.2 % (50.0-70.0); PLATELET COUNT,PLT 249 10^3/uL (150-400); RED BLOOD CELL COUNT 5.59 10^6/uL (3.80-5.50); RED CELL DISTRIBUTION WIDTH 11.2 % (11.5-14.5); WHITE BLOOD CELL COUNT,WBC 15.28 10^3/uL (5.00-10.00)
[2025-03-06] MEDS: Ondansetron 4 MG/2 ML SDV IVPUSH ONE ×2 (20:14→21:29)
[2025-03-06 20:28] LABS: ALANINE AMINOTRANSFERASE,ALT 17 U/L (14-63); ASPARTATE AMNIOTRANSFERASE,AST 12 U/L (15-37); BILIRUBIN TOTAL 1.1 mg/dL (0.2-1.0); BLOOD UREA NITROGEN,BUN 39 mg/dL (7-18); CARBON DIOXIDE,CO2 19.4 mmol/L (21.0-32.0); CHLORIDE,CL 95 mmol/L (98-107); CREATININE 1.38 mg/dL (0.51-1.17); ESTIMATED GFR 38 mL/min (>=60); GLUCOSE RANDOM 334 mg/dL (70-140); POTASSIUM,K 4.1 mmol/L (3.5-5.1); PROTEIN TOTAL,TP 8.0 g/dL (6.4-8.2); SODIUM,NA 135 mmol/L (136-145)
[2025-03-06 20:52] LABS: APPEARANCE,URINE CLEAR (CLEAR); GLUCOSE,URINE 500 mg/dL (NEGATIVE); OCCULT BLOOD,URINE NEGATIVE (NEGATIVE)
[2025-03-06 20:53] LABS: EPITHELIAL CELLS,URINE FEW /LPF
[2025-03-06 23:56] LABS: LACTIC ACID 3.0 mmol/L (0.4-2.0)
[2025-03-06] MEDS ORDERED: Glucose Gel 15 GM in 37.5 GM Tube PO PRN (23:59)
[2025-03-06] MEDS ORDERED: 50% Dextrose in Water 50 ML Syringe IVPUSH PRN (23:59)
[2025-03-07] MEDS ORDERED: Sennosides/Docusate Sodium 50-8.6 MG Tab PO PRN (00:19)
[2025-03-07] MEDS: Insulin Lispro 100 Unit/ML 3 ML KwikPen SUBCUT SCH ×3 (00:24→22:24)
[2025-03-07] MEDS: Ondansetron 4 MG/2 ML SDV IV PRN (06:22)
[2025-03-07 07:33] LABS: BASOPHILS ABSOLUTE AUTO 0.02 10^3/uL (0.00-0.10); BASOPHILS PERCENT AUTO 0.1 % (0.0-1.0); EOSINOPHILS ABSOLUTE AUTO 0.00 10^3/uL (0.10-0.30); EOSINOPHILS PERCENT AUTO 0.0 % (1.0-3.0); IMMATURE GRAN ABSOLUTE AUTO 0.06 10^3/uL (0.00-0.04); IMMATURE GRAN PERCENT AUTO 0.3 % (0.0-0.4); LYMPHOCYTES ABSOLUTE AUTO 1.31 10^3/uL (1.00-4.00); LYMPHOCYTES PERCENT AUTO 7.0 % (20.0-40.0); MEAN PLATELET VOLUME 12.8 fL (7.4-10.4); MONOCYTES ABSOLUTE AUTO 0.64 10^3/uL (0.10-0.80); MONOCYTES PERCENT AUTO 3.4 % (2.0-8.0); NEUTROPHILS ABSOLUTE AUTO 16.81 10^3/uL (2.50-7.00); NEUTROPHILS PERCENT AUTO 89.2 % (50.0-70.0); PLATELET COUNT,PLT 200 10^3/uL (150-400); RED BLOOD CELL COUNT 5.12 10^6/uL (3.80-5.50); RED CELL DISTRIBUTION WIDTH 11.2 % (11.5-14.5); WHITE BLOOD CELL COUNT,WBC 18.84 10^3/uL (5.00-10.00)
[2025-03-07 07:42] LABS: BLOOD UREA NITROGEN,BUN 41.0 mg/dL (7-18); CARBON DIOXIDE,CO2 15.3 mmol/L (21.0-32.0); CHLORIDE,CL 103.0 mmol/L (98-107); CREATININE 1.17 mg/dL (0.51-1.17); EST CRCL DRUG DOSING (CG) 26.63 mL/min; GLUCOSE RANDOM 284.0 mg/dL (70-140); POTASSIUM,K 3.5 mmol/L (3.5-5.1); SODIUM,NA 142.0 mmol/L (136-145)
[2025-03-07 07:43] LABS: ESTIMATED GFR 47.0 mL/min (>=60)
[2025-03-07 08:13] LABS: LACTIC ACID 1.4 mmol/L (0.4-2.0)
[2025-03-07 10:53] LABS: BLOOD UREA NITROGEN,BUN 36.0 mg/dL (7-18); CARBON DIOXIDE,CO2 26.1 mmol/L (21.0-32.0); CHLORIDE,CL 105.0 mmol/L (98-107); CREATININE 1.06 mg/dL (0.51-1.17); EST CRCL DRUG DOSING (CG) 29.39 mL/min; ESTIMATED GFR 52.0 mL/min (>=60); GLUCOSE RANDOM 146.0 mg/dL (70-140); POTASSIUM,K 3.7 mmol/L (3.5-5.1); SODIUM,NA 143.0 mmol/L (136-145)
[2025-03-08 07:34] LABS: BASOPHILS ABSOLUTE AUTO 0.01 10^3/uL (0.00-0.10); BASOPHILS PERCENT AUTO 0.1 % (0.0-1.0); EOSINOPHILS ABSOLUTE AUTO 0.00 10^3/uL (0.10-0.30); EOSINOPHILS PERCENT AUTO 0.0 % (1.0-3.0); IMMATURE GRAN ABSOLUTE AUTO 0.02 10^3/uL (0.00-0.04); IMMATURE GRAN PERCENT AUTO 0.2 % (0.0-0.4); LYMPHOCYTES ABSOLUTE AUTO 1.57 10^3/uL (1.00-4.00); LYMPHOCYTES PERCENT AUTO 17.1 % (20.0-40.0); MEAN PLATELET VOLUME 11.8 fL (7.4-10.4); MONOCYTES ABSOLUTE AUTO 1.14 10^3/uL (0.10-0.80); MONOCYTES PERCENT AUTO 12.4 % (2.0-8.0); NEUTROPHILS ABSOLUTE AUTO 6.42 10^3/uL (2.50-7.00); NEUTROPHILS PERCENT AUTO 70.2 % (50.0-70.0); PLATELET COUNT,PLT 148 10^3/uL (150-400); RED BLOOD CELL COUNT 4.84 10^6/uL (3.80-5.50); RED CELL DISTRIBUTION WIDTH 11.5 % (11.5-14.5); WHITE BLOOD CELL COUNT,WBC 9.16 10^3/uL (5.00-10.00)
[2025-03-08 07:51] LABS: BLOOD UREA NITROGEN,BUN 21.0 mg/dL (7-18); CARBON DIOXIDE,CO2 22.9 mmol/L (21.0-32.0); CHLORIDE,CL 107.0 mmol/L (98-107); CREATININE 0.9 mg/dL (0.51-1.17); EST CRCL DRUG DOSING (CG) 34.62 mL/min; GLUCOSE RANDOM 139.0 mg/dL (70-140); POTASSIUM,K 3.7 mmol/L (3.5-5.1); SODIUM,NA 141.0 mmol/L (136-145)
[2025-03-08 07:52] LABS: ESTIMATED GFR 64.0 mL/min (>=60)
[2025-03-08] MEDS: Insulin Lispro 100 Unit/ML 3 ML KwikPen SUBCUT SCH (08:10)
[2025-03-10 07:49] LABS: BLOOD UREA NITROGEN,BUN 21.0 mg/dL (7-18); CARBON DIOXIDE,CO2 23.0 mmol/L (21.0-32.0); CHLORIDE,CL 105.0 mmol/L (98-107); CHOLESTEROL HDL 31.0 mg/dL (40-60); CHOLESTEROL LDL CALCULATED 40.0 mg/dL (0-100); CHOLESTEROL TOTAL 101.0 mg/dL (100-200); CREATININE 0.83 mg/dL (0.51-1.17); EST CRCL DRUG DOSING (CG) 37.54 mL/min; GLUCOSE RANDOM 188.0 mg/dL (70-140); POTASSIUM,K 3.4 mmol/L (3.5-5.1); SODIUM,NA 138.0 mmol/L (136-145)
[2025-03-10 07:50] LABS: ESTIMATED GFR 70.0 mL/min (>=60)
== END 2025-03-12 15:45 | disposition home health service (06) | DRG 637 ==
LOC: KA.ED 19:54 → KA.MS 21:37
PROVIDERS: ADMIT Internal Medicine; ATTEND Internal Medicine
DX: E11.10 Type 2 diabetes mellitus with ketoacidosis without coma (principal); I63.10 Cerebral infarction due to embolism of unspecified precerebral artery; R65.10 Systemic inflammatory response syndrome (SIRS) of non-infectious origin without acute organ dysfunction; R74.02 Elevation of levels of lactic acid dehydrogenase [LDH]; R47.1 Dysarthria and anarthria; R29.702 NIHSS score 2; I10 Essential (primary) hypertension; J45.909 Unspecified asthma, uncomplicated; G47.30 Sleep apnea, unspecified; M19.90 Unspecified osteoarthritis, unspecified site; E86.0 Dehydration; Z91.030 Bee allergy status; Z88.8 Allergy status to other drugs, medicaments and biological substances; Z91.041 Radiographic dye allergy status; Z79.51 Long term (current) use of inhaled steroids; Z88.0 Allergy status to penicillin; Z79.82 Long term (current) use of aspirin; Z79.899 Other long term (current) drug therapy; Z79.84 Long term (current) use of oral hypoglycemic drugs; Z86.73 Personal history of transient ischemic attack (TIA), and cerebral infarction without residual deficits; Z98.41 Cataract extraction status, right eye; Z98.890 Other specified postprocedural states; Z90.49 Acquired absence of other specified parts of digestive tract; Z90.710 Acquired absence of both cervix and uterus
CPT/HCPCS: 36415; 80053; 81001; 83605; 83690; 83735; 84484; 85025; 96361; 96374; 99284; 99285; A4315; J2405 ×2; J7030 ×2; 70551; 74176; 80048; 80061; 82947; 83036; 87040; 87324; 87449; 92522; 94640; 97110-GO; 97110-GP; 97161-GP; 97165-GO; 97530-GO; 97535-GO; A9270-GY; J0692; J1171; J2270; J2765; Q3014

== ENCOUNTER 2025-03-16 14:01 | Emergency (ER) | payer MEDICARE, OTHER ==
[2025-03-16 14:46] LABS: BASOPHILS ABSOLUTE AUTO 0.01 10^3/uL (0.00-0.10); BASOPHILS PERCENT AUTO 0.1 % (0.0-1.0); EOSINOPHILS ABSOLUTE AUTO 0.01 10^3/uL (0.10-0.30); EOSINOPHILS PERCENT AUTO 0.1 % (1.0-3.0); IMMATURE GRAN ABSOLUTE AUTO 0.17 10^3/uL (0.00-0.04); IMMATURE GRAN PERCENT AUTO 0.9 % (0.0-0.4); LYMPHOCYTES ABSOLUTE AUTO 1.44 10^3/uL (1.00-4.00); LYMPHOCYTES PERCENT AUTO 7.8 % (20.0-40.0); MEAN PLATELET VOLUME 11.0 fL (7.4-10.4); MONOCYTES ABSOLUTE AUTO 0.82 10^3/uL (0.10-0.80); MONOCYTES PERCENT AUTO 4.4 % (2.0-8.0); NEUTROPHILS ABSOLUTE AUTO 15.99 10^3/uL (2.50-7.00); NEUTROPHILS PERCENT AUTO 86.7 % (50.0-70.0); PLATELET COUNT,PLT 271 10^3/uL (150-400); RED BLOOD CELL COUNT 5.23 10^6/uL (3.80-5.50); RED CELL DISTRIBUTION WIDTH 11.8 % (11.5-14.5); WHITE BLOOD CELL COUNT,WBC 18.44 10^3/uL (5.00-10.00)
[2025-03-16] MEDS: Ondansetron 4 MG/2 ML SDV IVPUSH ONE ×2 (15:00→15:51)
[2025-03-16 15:07] LABS: ALANINE AMINOTRANSFERASE,ALT 13.0 U/L (14-63); ASPARTATE AMNIOTRANSFERASE,AST 15.0 U/L (15-37); BILIRUBIN TOTAL 0.4 mg/dL (0.2-1.0); CARBON DIOXIDE,CO2 19.4 mmol/L (21.0-32.0); CHLORIDE,CL 95.0 mmol/L (98-107); CREATININE 1.61 mg/dL (0.51-1.17); EST CRCL DRUG DOSING (CG) 19.35 mL/min; GLUCOSE RANDOM 327.0 mg/dL (70-140); POTASSIUM,K 4.4 mmol/L (3.5-5.1); PROTEIN TOTAL,TP 5.7 g/dL (6.4-8.2); SODIUM,NA 130.0 mmol/L (136-145)
[2025-03-16 15:11] LABS: BLOOD UREA NITROGEN,BUN 70.0 mg/dL (7-18); ESTIMATED GFR 32.0 mL/min (>=60)
[2025-03-16 16:24] LABS: APPEARANCE,URINE CLEAR (CLEAR); GLUCOSE,URINE 500 mg/dL (NEGATIVE); OCCULT BLOOD,URINE NEGATIVE (NEGATIVE)
[2025-03-16 16:34] LABS: EPITHELIAL CELLS,URINE RARE /LPF
[2025-03-16 18:59] VITALS: BP 124/55; PULSE 86
[2025-03-16] MEDS: Acetaminophen/HYDROcodone 325-5 MG Tab PO ONE (19:00)
[2025-03-16] MEDS: Prochlorperazine 10 MG/2 ML SDV IVPUSH ONE (19:01)
== END 2025-03-16 19:08 ==
LOC: KA.ED 14:01
DX: R19.7 Diarrhea, unspecified (principal); R11.10 Vomiting, unspecified; D72.828 Other elevated white blood cell count; N17.9 Acute kidney failure, unspecified; R33.9 Retention of urine, unspecified; E87.20 Acidosis, unspecified; I10 Essential (primary) hypertension; J45.909 Unspecified asthma, uncomplicated; E11.9 Type 2 diabetes mellitus without complications; Z90.49 Acquired absence of other specified parts of digestive tract; Z90.710 Acquired absence of both cervix and uterus; Z88.8 Allergy status to other drugs, medicaments and biological substances; Z91.041 Radiographic dye allergy status; Z88.0 Allergy status to penicillin; Z79.899 Other long term (current) drug therapy; Z79.82 Long term (current) use of aspirin
CPT/HCPCS: 36415; 51702; 71045; 80053; 81001; 83605; 85025; 87040; 96361; 96374; 96375; 96376; 99284; 99285-25; A9270-GY; J0780; J2405; J7030